=== PATIENT | female | born 1960 | race Caucasian/White ===

== ENCOUNTER → 2018-04-14 | Outpatient (CLI) | payer MEDICARE ==
--- NOTE | 2018-04-14 16:25 | RAD ---
DATE: 04/14/2018 EXAM: MAMMO MATHEUS SCREENING BILATERAL HISTORY: Routine screening COMPARISON: 04/13/2017 This study was interpreted with the benefit of Computerized Aided Detection (CAD). The breast parenchyma shows scattered fibroglandular densities. Breast parenchyma level B. FINDINGS: 2-D and 3-D tomosynthesis imaging was performed in CC and MLO projections. Bilateral breast nodules are unchanged. No spiculated mass or architectural distortion is evident. Benign type calcifications are present. No suspicious microcalcifications have developed. IMPRESSION: Stable mammograms without evidence of malignancy. BI-RADS CATEGORY: 2 BENIGN FINDING(S) RECOMMENDED FOLLOW-UP: 12M 12 MONTH FOLLOW-UP PQRS compliance statement: Patient information was entered into a reminder system with a target due date for the next mammogram. Mammography is a sensitive method for finding small breast cancers, but it does not detect them all and is not a substitute for careful clinical examination. A negative mammogram does not negate a clinically suspicious finding and should not result in delay in biopsying a clinically suspicious abnormality. "Our facility is accredited by the [employer] Mammography Program."
== END | disposition home or self-care (01) ==
LOC: MAMMO 08:51
PROVIDERS: ATTEND Family Medicine
DX: Z12.31 Encounter for screening mammogram for malignant neoplasm of breast (principal); E78.5 Hyperlipidemia, unspecified
CPT/HCPCS: 77063; 77067

== ENCOUNTER → 2018-06-07 | Outpatient (CLI) | payer MEDICARE ==
[~2018-06-07] MED LIST: IOHEXOL 240 MG/ML 50ML VIAL. ONE; IOHEXOL 300 MG/ML 75 ML VIAL. IV ONE
--- NOTE | 2018-06-07 14:13 | RAD ---
CT Abdomen and Pelvis With Intravenous Contrast: History: Left-sided pain for 4 days. Nausea. Comparison: None. Technique: After administration of oral and intravenous contrast, 75 mL Omnipaque-300, CT of the abdomen and pelvis was performed. Exposure: One or more of the following individualized dose reduction techniques were utilized for this examination: 1. Automated exposure control 2. Adjustment of the mA and/or kV according to patient size 3. Use of iterative reconstruction technique Findings: Subcapsular right hepatic lobe demonstrates 3.3 cm cyst. A few smaller subcentimeter low-attenuation lesions are seen involving the liver, not adequately characterized on this examination. More inferiorly and laterally in the right hepatic lobe, in subcapsular region, there is a 1.4 cm low-density lesion, not adequately characterized on this examination. Calcified splenic granulomata are present. Gallbladder, pancreas, and bilateral adrenal glands are unremarkable. Bilateral kidneys enhance symmetrically. Aortic atherosclerosis is present. Urinary bladder is unremarkable. Uterus is absent. Right ovary appears left in place. Colonic diverticulosis is noted, but no diverticulitis is appreciated. Degenerative changes are present spine. Impression: 1. No acute abnormality identified in the abdomen or pelvis. 2. Colonic diverticulosis without evidence of diverticulitis. 3. Multiple liver lesions. The largest is compatible with cyst. There is an additional subcapsular right hepatic lesion which is not adequately characterized on this examination. Recommend correlation with any risk factors for primary or secondary hepatic malignancy. Electronically signed by: Sammy Oneal MD (06/07/2018 1:58 PM) [id number]
== END | disposition home or self-care (01) ==
LOC: CT 11:28
PROVIDERS: ATTEND Family Medicine
DX: K57.30 Diverticulosis of large intestine without perforation or abscess without bleeding (principal); K76.89 Other specified diseases of liver; D73.89 Other diseases of spleen; I70.0 Atherosclerosis of aorta; M47.896 Other spondylosis, lumbar region
CPT/HCPCS: 74177; Q9966; Q9967

== ENCOUNTER → 2018-06-23 | Outpatient (CLI) | payer MEDICARE ==
--- NOTE | 2018-06-23 11:17 | RAD ---
Limited abdominal ultrasound, right abdomen 06/23/2018 INDICATION: Liver lesion seen on CT scan, June 07, 2018 Discussion: Ultrasound evaluation of the abdomen was performed. Static images are submitted to PACS. The pancreas is partially visualized. Visualized portions of the pancreas are grossly unremarkable. The gallbladder is normal in appearance without evidence of wall thickening, stones, or sludge. The liver is enlarged measuring 20 cm longitudinally. Ultrasound measurement may be in part due to an elongate right lobe of the liver. Liver is diffusely echogenic suggesting possible mild hepatic steatosis. Right kidney is normal in appearance measuring 12 cm in length. Cystic structure in the posterior superior right liver is nonvisualized by ultrasound. This structure measures 3.5 cm on prior ultrasound suggesting portions of the liver are either poorly visualized and/or not included on study. This may in part reflect technical limitations based on body habitus. On prior contrast-enhanced CT the density of this lesion is convincing for hepatic cyst. There are scattered small hepatic hypodensities on prior CT scan to small to characterize by CT, and nonvisualized by ultrasound. There is an ill-defined hypodensity in the lateral right hepatic lobe on prior CT scan which is not definitively characterized as cystic on that study, which is also not visualized by ultrasound. IMPRESSION: 1. Limited evaluation of the liver as described. Low-density lesion in the lateral right liver scattered small subcentimeter liver lesions are not visualized by ultrasound. Recommend hepatic protocol MRI for further characterization of the largest noncystic liver lesion. 2.Hepatomegaly. Possible hepatic steatosis. Electronically signed by: Henri Arzola MD (06/23/2018 11:14 AM) [id number]
== END | disposition home or self-care (01) ==
LOC: US 09:53
PROVIDERS: ATTEND Physician Assistant
DX: K76.89 Other specified diseases of liver (principal); R16.0 Hepatomegaly, not elsewhere classified; M19.90 Unspecified osteoarthritis, unspecified site; Z78.0 Asymptomatic menopausal state; Z90.710 Acquired absence of both cervix and uterus; Z82.49 Family history of ischemic heart disease and other diseases of the circulatory system
CPT/HCPCS: 76705

== ENCOUNTER → 2021-04-14 | Outpatient (CLI) | payer OTHER ==
--- NOTE | 2021-04-14 14:07 | RAD ---
EXAM: Bilateral lower extremity arterial Doppler sonogram. HISTORY: Pain and numbness. Mild. Hypertension. Peripheral vascular disease. TECHNIQUE: Santillan scale and color Doppler sonographic evaluation of the bilateral lower shotty arteries with spectral waveform analysis was performed. FINDINGS: There are biphasic and triphasic waveforms throughout the right lower extremity arteries an d left lower extremity arteries from the common femoral artery to the proximal posterior tibial arter y. There are abnormal monophasic waveforms involving the left distal posterior tibial artery, peronea l artery, anterior tibial artery and dorsalis pedis artery. There are abnormal elevated peak systolic velocities within the bilateral common femoral arteries, me asuring 217 cm/s on the right and 220 cm/s on the left. There are also abnormal elevated peak systoli c velocities within the proximal superficial femoral arteries, measuring 176 cm/s on the right and 17 4 cm/s on the left. There is an elevated peak systolic velocity within the distal left posterior tibi al artery, measuring 183 cm/s. There is no arterial occlusion. IMPRESSION: 1. Abnormal monophasic waveforms involving the distal left posterior tibial artery, peroneal artery, anterior tibial artery and dorsalis pedis artery, consistent with hemodynamically significant proxima l stenosis. There is also an elevated peak systolic velocity within the distal left posterior tibial artery favoring hemodynamically significant stenosis. 2. Elevated peak systolic velocities within the bilateral common femoral and proximal superficial fem oral arteries, suggesting mild stenosis. 3. No evidence of arterial occlusion. Electronically signed by: Ana Greene MD (04/14/2021 2:04 PM) [id number]
== END ==
LOC: US 07:40
PROVIDERS: ATTEND Family Medicine
DX: M79.89 Other specified soft tissue disorders (principal); R22.9 Localized swelling, mass and lump, unspecified; I70.8 Atherosclerosis of other arteries
CPT/HCPCS: 93925